=== PATIENT | male | born 1955 | race Caucasian/White ===

== ENCOUNTER 2017-06-19 09:32 | Inpatient (IN) | payer BC ==
[~2017-06-19] VITALS: Ht 165.1 cm; Wt 108.4 kg
[2017-06-19 12:50] VITALS: BP 147/69
[2017-06-19 13:56] LABS: APPEARANCE CLEAR (CLEAR); BILIRUBIN NEGATIVE (NEGATIVE); COLOR STRAW (YELLOW); GLUCOSE 1000 mg/dL (NEGATIVE); KETONE NEGATIVE (NEGATIVE); NITRITE NEGATIVE (NEGATIVE); PROTEIN NEGATIVE (NEGATIVE); UROBILINOGEN NORMAL (NORMAL)
[2017-06-19 16:05] VITALS: BP 136/67
[2017-06-19 19:57] VITALS: BMI 39.8
[2017-06-19 20:23] VITALS: BP 128/64
[2017-06-20] VITALS (7 sets, daily range): BP systolic 88–137; BP diastolic 65–72; Ht 165.1 cm; Wt 108.4 kg
[2017-06-20 04:47] LABS: BASOPHILS 0.1 % (0-2); EOSINOPHILS 0 % (0-7); HEMATOCRIT 44.8 % (42.0-54.0); HEMOGLOBIN 15.1 g/dL (13.5-17.5); IMMATURE GRANULOCYTES 0.4 % (0-5); LYMPHOCYTES 7.2 % (15-50); MCH 30.9 pg (26.0-34.0); MCHC 33.7 g/dL (31.0-37.0); MCV 91.8 fL (80.0-100.0); MEAN PLATELET VOLUME 9.6 fL (7.4-10.4); NEUTROPHILS 85.3 % (40-80); PLATELET COUNT 216 10x3/uL (130-400); RBC 4.88 10x6/uL (4.20-6.10); RDW 13.8 % (11.5-14.5)
[2017-06-20 05:02] LABS: ANION GAP 15.5 mmol/L (8-16); CALCIUM 8.2 mg/dL (8.5-10.1); CARBON DIOXIDE 21.8 mmol/L (21.0-32.0); CREATININE - SERUM 1.6 mg/dL (0.6-1.3); POTASSIUM - SERUM 4.3 mmol/L (3.5-5.1)
[2017-06-20] MEDS ORDERED: ZOLOFT100 MG PO (08:19)
[2017-06-20] MEDS ORDERED: INVOKANA300 MG PO (08:20)
[2017-06-20] MEDS ORDERED: GLIMEPIRIDE4 MG PO (08:20)
[2017-06-20] MEDS ORDERED: ZYRTEC10 MG PO (08:21)
[2017-06-20] MEDS ORDERED: CINNAMON500 MG PO (08:22)
[2017-06-20] MEDS ORDERED: ZOFRAN8 MG PO (08:22)
[2017-06-21] VITALS (7 sets, daily range): BP systolic 104–138; BP diastolic 48–71
[2017-06-21 04:50] LABS: BASOPHILS 0.1 % (0-2); EOSINOPHILS 0 % (0-7); HEMATOCRIT 42.3 % (42.0-54.0); HEMOGLOBIN 14.1 g/dL (13.5-17.5); IMMATURE GRANULOCYTES 0.6 % (0-5); LYMPHOCYTES 9.5 % (15-50); MCH 30.9 pg (26.0-34.0); MCHC 33.3 g/dL (31.0-37.0); MCV 92.8 fL (80.0-100.0); MEAN PLATELET VOLUME 9.6 fL (7.4-10.4); MONOCYTES 6.5 % (2-11); NEUTROPHILS 83.3 % (40-80); PLATELET COUNT 213 10x3/uL (130-400); RBC 4.56 10x6/uL (4.20-6.10); WBC 13.7 10x3/uL (4.8-10.8)
[2017-06-21 05:04] LABS: ANION GAP 18.8 mmol/L (8-16); CALCIUM 8.2 mg/dL (8.5-10.1); CARBON DIOXIDE 19.3 mmol/L (21.0-32.0); CREATININE - SERUM 1.4 mg/dL (0.6-1.3); POTASSIUM - SERUM 4.1 mmol/L (3.5-5.1)
[2017-06-21 16:12] LABS: IMMUNOGLOBULIN A 214 mg/dL (61-437)
[2017-06-22 03:19] LABS: ANGIOTENSIN CONVERTING ENZYME 32 U/L (14-82)
[2017-06-22 04:22] VITALS: BP 98/59
[2017-06-22 04:23] LABS: BASOPHILS 0.2 % (0-2); EOSINOPHILS 0 % (0-7); HEMATOCRIT 43.1 % (42.0-54.0); HEMOGLOBIN 14.4 g/dL (13.5-17.5); IMMATURE GRANULOCYTES 1.2 % (0-5); LYMPHOCYTES 14.9 % (15-50); MCH 30.9 pg (26.0-34.0); MCHC 33.4 g/dL (31.0-37.0); MCV 92.5 fL (80.0-100.0); MEAN PLATELET VOLUME 9.3 fL (7.4-10.4); MONOCYTES 5.6 % (2-11); NEUTROPHILS 78.1 % (40-80); PLATELET COUNT 195 10x3/uL (130-400); RBC 4.66 10x6/uL (4.20-6.10); RDW 13.8 % (11.5-14.5); WBC 12.6 10x3/uL (4.8-10.8)
[2017-06-22 04:36] LABS: ANION GAP 13.3 mmol/L (8-16); CALCIUM 7.9 mg/dL (8.5-10.1); CARBON DIOXIDE 23.9 mmol/L (21.0-32.0); CREATININE - SERUM 1.3 mg/dL (0.6-1.3); POTASSIUM - SERUM 4.2 mmol/L (3.5-5.1)
[2017-06-22 05:22] LABS: IGG SUBCLASS 1 803 mg/dL (248-810); IGG SUBCLASS 2 498 mg/dL (130-555); IGG SUBCLASS 3 128 mg/dL (15-102); IGG SUBCLASS 4 273 mg/dL (2-96)
[2017-06-22 07:42] VITALS: BP 119/52
[2017-06-22 12:24] VITALS: BP 142/68
[2017-06-22] MEDS ORDERED: BENZONATATE200 MG PO (13:45)
[2017-06-22] MEDS ORDERED: SINGULAIR10 MG PO (13:46)
[2017-06-22] MEDS ORDERED: MUCINEX DM ER1 EAC1 PO (13:47)
[2017-06-22] MEDS ORDERED: PROMETHAZINE W473 M1 PO (13:49)
[2017-06-22] MEDS ORDERED: Astelin NASAL SPRAY NASAL (13:49)
[2017-06-22] MEDS ORDERED: PULMICORT0.5 MG/21 UPD (13:49)
[2017-06-22] MEDS ORDERED: ADVAIR 250/501 DISK INH (13:49)
[2017-06-22] MEDS ORDERED: FLUTICASONE PRO16 GM NASAL (13:49)
[2017-06-22] MEDS ORDERED: Levaquin PO (13:49)
[2017-06-22] MEDS ORDERED: IPRAT-ALBUT 0.5-3 ML UPD (15:13)
[2017-06-22 20:16] LABS: B PARAPERTUSSIS DNA Negative (Negative); B PERTUSSIS DNA Negative (Negative)
[2017-06-26 12:18] LABS: IMMUNOGLOBULIN E 394 IU/mL (0-100)
[2017-06-27 19:14] LABS: FUNGAL - ASP FLAVUS Negative (Neg:<1:1); FUNGAL - ASP NIGER Negative (Neg:<1:1); FUNGAL - ASPER FUMIGATUS Negative (Neg:<1:1)
== END 2017-06-22 16:36 | disposition home or self-care (01) | DRG 194 ==
LOC: D.MS 09:32
PROVIDERS: Internal Medicine Nephrology; Internal Medicine Pulmonary Disease
DX: J18.9 Pneumonia, unspecified organism (principal); E87.1 Hypo-osmolality and hyponatremia; N17.9 Acute kidney failure, unspecified; R05 Cough; J45.909 Unspecified asthma, uncomplicated; J01.40 Acute pansinusitis, unspecified; E11.9 Type 2 diabetes mellitus without complications; D72.1 Eosinophilia; K21.9 Gastro-esophageal reflux disease without esophagitis; G47.33 Obstructive sleep apnea (adult) (pediatric); Z91.19 Patient's noncompliance with other medical treatment and regimen; E66.9 Obesity, unspecified; Z68.39 Body mass index [BMI] 39.0-39.9, adult; J98.4 Other disorders of lung